=== PATIENT | female | born 1985 | race Caucasian/White ===

== ENCOUNTER 2020-08-02 19:56 | Emergency (ER) | payer SELFPAY ==
[~2020-08-02] VITALS: Ht 154.9 cm; Wt 88.3 kg
--- NOTE | 2020-08-02 20:07 | NUR ---
Walks to room, pt sent to bathroom to provide urine sample.
--- NOTE | 2020-08-02 20:24 | NUR ---
PT CAME IN CO RIGHT FLANK PAIN. STATES SHE WAS DX WITH KIDNEY STONE ON SUNDAY AT A ER IN [place].
[2020-08-02] MEDS ORDERED: HYDROmorphone 1 MG/ML, 1ML INJ IV ONE (20:30)
[2020-08-02] MEDS ORDERED: SODIUM CHLORIDE FLUSH 10ML SYR IVF ONE (20:30)
[2020-08-02] MEDS ORDERED: SODIUM CHLORIDE 0.9% 1,000ML IVBOLUS ONE (20:30)
[2020-08-02] MEDS ORDERED: ONDANSETRON 2MG/ML, 2ML IVPush ONE (20:30)
[2020-08-02] MEDS ORDERED: ONDANSETRON 2MG/ML, 2ML ONE (20:34)
[2020-08-02] MEDS ORDERED: HYDROmorphone 1 MG/ML, 1ML INJ ONE (20:34)
[2020-08-02 21:28] LABS: MICROSCOPIC AUTO
--- NOTE | 2020-08-02 21:28 | NUR ---
PT MEDICATED PER MAR
[2020-08-02 21:45] LABS: BASOPHILS % (AUTO) 1 % (0-1); EOSINOPHILS % (AUTO) 4 % (1-7); LYMPHOCYTES % (AUTO) 32 % (22-44); MEAN CORPUSCULAR HEMOGLOBIN 31.1 pg (27.0-34.8); MEAN PLATELET VOLUME 8.7 fL (7.4-10.4); MONOCYTES % (AUTO) 10 % (2-9); NEUTROPHILS % (AUTO) 53 % (42-75); PLATELET COUNT 239 x10^3/uL (130-400); RED BLOOD COUNT 3.95 x10^6/uL (3.82-5.3); RED CELL DISTRIBUTION WIDTH 13.3 % (9.6-15.2)
[2020-08-02 22:20] LABS: ALBUMIN 3.6 g/dL (3.4-5.0); ANION GAP 6 mmol/L (5-15); CALCIUM 9.1 mg/dL (8.5-10.1); CHLORIDE 109 mmol/L (98-107); CREATININE 0.68 mg/dL (0.55-1.02)
--- NOTE | 2020-08-02 22:58 | NUR ---
report to JOSE BROWNING
[2020-08-02 23:23] VITALS: BP 127/91
--- NOTE | 2020-08-02 23:36 | NUR ---
Discharge instructions given. All questions and concerns addressed. Patient ambulatory with a steady gait. Belongings with patient.
== END 2020-08-02 23:37 | disposition home or self-care (01) ==
LOC: ED 21:25
DX: R10.31 Right lower quadrant pain (principal); R10.2 Pelvic and perineal pain; R00.0 Tachycardia, unspecified; Z90.89 Acquired absence of other organs; Z90.49 Acquired absence of other specified parts of digestive tract; Z88.5 Allergy status to narcotic agent; Z88.6 Allergy status to analgesic agent; Z88.9 Allergy status to unspecified drugs, medicaments and biological substances; Z91.040 Latex allergy status
CPT/HCPCS: 36415; 80048; 81001; 82040; 84703; 85025; 96361; 96374; 96375; 99284; J1170; J2405; J7030